=== PATIENT | female | born 1970 | race Caucasian/White ===

== ENCOUNTER 2018-02-02 08:24 | Day surgery (SDC) | payer BC ==
[2018-01-26 14:58] VITALS: BMI 25.1
--- NOTE | 2018-02-01 10:26 | HP ---
HISTORY AND PHYSICAL CHIEF COMPLAINT: Left knee pain. 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 She is having pain, giving way, and swelling. She has tried medications in addition to an injection without much relief. She notes the pain significantly limits her. PAST MEDICAL HISTORY: Negative. PAST SURGICAL HISTORY: Negative. CURRENT MEDICATIONS: 1. Aleve. 2. Aleisha. She denies drug allergies. FAMILY HISTORY: Significant for cancer. SOCIAL HISTORY: Significant for social alcohol use. REVIEW OF SYSTEMS: A 16 point review of systems otherwise reviewed and is noncontributory. PHYSICAL EXAMINATION: On examination, the patient is approximately 5 foot 10, 175 pounds of mesomorphic habitus. HEENT exam is nonfocal. Neck is supple. She has painless passive motion of her left hip. Straight leg raise is negative. Active motion left knee -10 to 120 degrees of flexion. She has a moderate effusion. She is tender about the medial joint line. Collaterals are stable, Benitez is negative, Amber's elicits medial pain. Her distal neurovascular exam appears intact in the left lower extremity. MRI report left knee 12/22/2017 shows a possible medial femoral condyle chondral injury. Degenerative changes involve the medial and patellofemoral compartments are noted. IMPRESSION: 1. Left knee internal derangement, possible medial femoral condyle chondral injury. 2. Left knee medial and patellofemoral femoral compartment osteoarthrosis. RECOMMENDATIONS: I talked to the patient at length regarding her condition and treatment options. At this point, she is quite symptomatic despite conservative measures. After thorough discussion, she opts to proceed with surgery. We will plan to proceed with arthroscopic evaluation with possible medial femoral conducting and possible microfracture. Risks and benefits were discussed at length in layman's terms. We will likely perform that as an outpatient procedure. MMODL / IJN: [id number] /
[~2018-02-02 08:24] MED LIST: DEXAMETHASONE SOD PHOSPHATE 10 MG/ML 1 ML VIAL IV ONE; LIDOCAINE 1% 20 ML VIAL (10MG/ML) FOR IV START INTRADERMA PRN; MIDAZOLAM 2 MG/2 ML VIAL IV PRN; ONDANSETRON 4 MG/2 ML VIAL IVP ONE; SCOPOLAMINE 1.5MG/72HR PATCH TRANSDERM ONE; ceFAZolin IN SWFI 2 GM/20 ML SYRINGE IVP ONE
[2018-02-02 08:38] VITALS: RESP 16
[2018-02-02] MEDS: LACTATED RINGERS 1,000 ML IV SCH ×2 (08:52→13:08)
[2018-02-02] MEDS ORDERED: PROPOFOL 10 MG/ML 20 ML VIAL IV ONE (10:03)
[2018-02-02] MEDS ORDERED: fentaNYL (PF) 50 MCG/ML 2 ML AMP ONE (10:03)
[2018-02-02] MEDS ORDERED: LIDOCAINE 1% INJ 10MG/ML (20 ML MDV) ONE (10:03)
[2018-02-02] MEDS ORDERED: KETOROLAC 30 MG/ML 1 ML VIAL ONE (10:03)
[2018-02-02] MEDS ORDERED: EPINEPHrine (PF) 1 ML in SODIUM CHLORIDE 0.9% IRRIGATIO 3,000 ML IRRIGATION ONE ×4 (10:05)
--- NOTE | 2018-02-02 10:49 | P.OP ---
Date of Procedure: 02/02/18 Preoperative Diagnosis: Left knee internal derangement Postoperative Diagnosis: Left knee posterior medial meniscal tear/grade 3 chondral injury posterior medial aspect medial femoral condyle/grade 3 chondral injury distal medial aspect lateral femoral condyle Procedure(s) Performed: Left knee arthroscopic partial medial meniscectomy/medial and lateral femoral chondrectomy/microfracture of the medial femoral condyle/microfracture the lateral femoral condyle Anesthesia: GETA Surgeon: Vasquez Sullivan Estimated Blood Loss (ml): 10 Pathology: none sent Condition: stable Disposition: PACU Indications for Procedure: The patient is a 47-year-old female who presents with progressive left knee pain and mechanical symptoms despite conservative measures. A discussion of the risks and benefits of operative intervention versus continued conservative measures was made with patient. She opted for procedure surgery. Operative risks to include infection, neurovascular injury, development of blood clots, possible incomplete resolution of symptoms, possible worsening symptoms and need for subsequent procedures was discussed. Informed consent was obtained. Operative Findings: As below Description of Procedure: The patient was brought to the operating room, and after induction of general anesthesia examined the left knee. Collaterals were stable, Benitez was negative, and posterior drawer was negative. The left lower extremity was prepped and draped in normal fashion. A superior lateral portal was made through a 3 mm skin incision superior and lateral to the patella. This was used for outflow. A lateral portal was made through a 5 mm vertical skin incision lateral to the patella tendon above the joint line. On inspection of the medial compartment, and oblique tear involving the posterior horn medial meniscus in the white-white junction was noted. This debrided back to stable base with straight baskets and a motorized shaver. The edges were contoured. A grade 3 chondral injury involving the posterior medial and distal medial aspect of the medial femoral condyle was noted. There was a loose chondral fragment. This was debrided back to a stable base with a motorized shaver. It was elected to proceed with microfracture this point. A chondral pick was used to breach the subchondral surface in 2 locations down to a bleeding surface. On inspection of the notch, anterior cruciate ligament appeared to be intact. On inspection of the lateral compartment, the lateral meniscus was stable and intact. A grade 3 chondral defect measuring 2 x 2 cm was noted on the distal medial portion the lateral femoral condyle. There was a loose chondral fragment debrided back to stable base with a motorized shaver. Microfracture is performed with a chondral pick and 2 locations reaching the subchondral surface down to bleeding surface. On inspection of the patellofemoral articulation, there is chondral fibrillation and mild degenerative changes however no loose chondral fragment. Several small loose chondral fragments were noted in the knee and debrided with motorized shaver. The gutters were clear debris. The knee was thoroughly irrigated. The portals were closed with Steri-Strips. A sterile dressing was applied in addition to a compression stocking. The patient was awoken from general anesthesia and transferred to recovery room in good condition. Blood loss was estimated at 10 mL. No complications were incurred.
[2018-02-02 10:56] VITALS: TEMP 97.8
[2018-02-02] MEDS: HYDROmorphone 0.5 MG/0.5 ML SYRINGE IVP PRN ×5 (11:00→11:26)
[2018-02-02] MEDS ORDERED: LACTATED RINGERS 1,000 ML IV ONE ×3 (11:16)
[2018-02-02] MEDS ORDERED: fentaNYL (PF) 50 MCG/ML 2 ML AMP IVP ONE (11:40)
[2018-02-02 12:31] VITALS: BP 143/78; PULSE 52
[2018-02-02] MEDS ORDERED: ONDANSETRON 4 MG/2 ML VIAL IVP ONE ×2 (12:55→13:00)
== END 2018-02-02 14:06 | disposition home or self-care (01) ==
LOC: OR 08:24
PROVIDERS: ATTEND Orthopaedic Surgery
DX: M23.322 Other meniscus derangements, posterior horn of medial meniscus, left knee (principal); M23.92 Unspecified internal derangement of left knee; M17.12 Unilateral primary osteoarthritis, left knee; Z79.1 Long term (current) use of non-steroidal anti-inflammatories (NSAID); Z79.899 Other long term (current) drug therapy
CPT/HCPCS: 29881; 29879; J1100; J2405; J0171; J2001; J3010; J1885; J2704; J1170; J0690

== ENCOUNTER → 2018-12-14 | Outpatient (CLI) | payer BC ==
[2018-12-14 09:49] LABS: Basophils # (A) 0.1 k/uL (0-0.2); Basophils % (A) 1 %; Eosinophils # (A) 0.3 k/uL (0-0.7); Eosinophils % (A) 6 %; HCT 41.5 % (34.0-46.0); HGB 13.6 gm/dL (11.4-16.0); Lymphocytes # (A) 1.1 k/uL (1.0-4.8); Lymphocytes % (A) 20 %; MCH 33.8 pg (25.0-35.0); MCHC 32.7 g/dL (31.0-37.0); MCV 103.2 fL (80.0-100.0); Macrocytosis Slight; Mean Platelet Volume 7.6; Monocytes # (A) 0.3 k/uL (0-1.0); Monocytes % (A) 5 %; Neutrophils # (A) 3.5 k/uL (1.3-7.7); Neutrophils % (A) 66 %; Platelet Count 262 k/uL (150-450); RBC 4.02 m/uL (3.80-5.40); RDW 12.6 % (11.5-15.5); WBC 5.3 k/uL (3.8-10.6)
[2018-12-14 09:52] LABS: Prothrombin Time 10.3 sec (9.0-12.0)
[2018-12-14 09:53] LABS: Potassium 4.4 mmol/L (3.5-5.1)
== END | disposition home or self-care (01) ==
LOC: LABPAT 08:58
PROVIDERS: ATTEND Orthopaedic Surgery
DX: Z01.812 Encounter for preprocedural laboratory examination (principal); Z01.818 Encounter for other preprocedural examination; M16.11 Unilateral primary osteoarthritis, right hip
CPT/HCPCS: 36415; 80051; 85025; 85610; 87070

== ENCOUNTER 2018-12-25 07:01 | Inpatient (IN) | payer BC ==
[2018-12-19 15:04] VITALS: BMI 25.8
--- NOTE | 2018-12-24 08:57 | HP ---
HISTORY AND PHYSICAL CHIEF COMPLAINT: Right hip pain. 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 It has worsened recently. She has pain with weightbearing activities. She notes intermittent catching. She has a difficult time getting around. She has tried medications in addition to Medrol Dosepak without much relief. PAST MEDICAL HISTORY: Significant for arthritis. PAST SURGICAL HISTORY: Negative. CURRENT MEDICATIONS: Aleisha. ALLERGIES: She denies drug allergies. FAMILY HISTORY: Significant for cancer. SOCIAL HISTORY: Negative for current tobacco or alcohol use. REVIEW OF SYSTEMS: Sixteen-point review of systems otherwise reviewed and is noncontributory. PHYSICAL EXAMINATION: On examination, the patient is approximately 5 feet 10 inches, 180 pounds of mesomorphic habitus. HEENT exam is nonfocal. Neck is supple. Passive motion right hip, flexion 90 degrees, external rotation with hip flexed 50 degrees, internal rotation 0 degrees with pain. Clinically, she has approximately 1 cm shortening right lower extremity compared to the left. Her distal neurovascular exam appears intact in the right lower extremity. Previous x-rays of the right hip obtained in the office show severe osteoarthrosis with [id number] changes. IMPRESSION: Right hip severe osteoarthrosis-symptomatic. RECOMMENDATIONS: I talked to the patient at length regarding her condition along with treatment options. At this point, she is quite limited because of pain related to her osteoarthrosis despite conservative measures. After thorough discussion, she opts to proceed with surgery. We will plan to proceed with right total hip arthroplasty utilizing a direct anterior approach. We will institute DVT prophylaxis postoperatively. MMODL / IJN: [id number] /
[~2018-12-25 07:01] MED LIST changes: +ACETAMINOPHEN TAB 500 MG TAB PO ONE; -LIDOCAINE 1% 20 ML VIAL (10MG/ML) FOR IV START INTRADERMA PRN; +MELOXICAM 7.5 MG TAB PO ONE; -MIDAZOLAM 2 MG/2 ML VIAL IV PRN; +TRANEXAMIC ACID 1,000 MG in SODIUM CHLORIDE 0.9% 100 ML IVPB ONE; -ceFAZolin IN SWFI 2 GM/20 ML SYRINGE IVP ONE
[2018-12-25] MEDS: LACTATED RINGERS 1,000 ML IV SCH (07:39)
[2018-12-25] MEDS ORDERED: LIDOCAINE 1% 20 ML VIAL (10MG/ML) FOR IV START INTRADERMA ONE (07:45)
[2018-12-25] MEDS ORDERED: MIDAZOLAM 2 MG/2 ML VIAL ONE (08:00)
[2018-12-25] MEDS ORDERED: LIDOCAINE 1% INJ 10MG/ML (20 ML MDV) ONE (08:00)
[2018-12-25] MEDS ORDERED: TRANEXAMIC ACID 1,000 MG/10 ML VIAL ONE (08:00)
[2018-12-25] MEDS ORDERED: GLYCOPYRROLATE 0.2 MG/ML 2 ML VIAL ONE (08:00)
[2018-12-25] MEDS ORDERED: PROPOFOL 10 MG/ML 20 ML VIAL IV ONE (08:00)
[2018-12-25] MEDS ORDERED: ePHEDrine SULFATE/0.9% NACL/PF 50 MG/5 ML SYRINGE IV ONE (08:00)
[2018-12-25] MEDS ORDERED: fentaNYL (PF) 50 MCG/ML 2 ML AMP ONE (08:00)
[2018-12-25] MEDS ORDERED: ROCURONIUM BROMIDE 10 MG/ML 10 ML VIAL IV ONE (08:00)
[2018-12-25] MEDS ORDERED: SUCCINYLCHOLINE CHLORIDE 100 MG/5 ML SYR IV ONE (08:00)
[2018-12-25] MEDS ORDERED: SODIUM CHLORIDE 0.9% 100 ML BAG ONE (08:00)
[2018-12-25] MEDS ORDERED: NEOSTIGMINE 1 MG/ML 10 ML VIAL ONE (08:00)
[2018-12-25] MEDS ORDERED: HYDROmorphone (PF) 1 MG/ML ONE (08:00)
[2018-12-25] MEDS ORDERED: ceFAZolin 3,000 MG in SODIUM CHLORIDE 0.9% IRRIGATIO 3,000 ML IRRIGATION ONE (08:46)
[2018-12-25] MEDS ORDERED: LACTATED RINGERS 1,000 ML IV ONE (09:33)
[2018-12-25] MEDS ORDERED: ONDANSETRON 4 MG/2 ML VIAL IVP PRN (10:28)
[2018-12-25] MEDS ORDERED: HYDROmorphone 0.5 MG/0.5 ML SYRINGE IVP PRN (10:28)
[2018-12-25] MEDS ORDERED: ACETAMINOPHEN TAB 325 MG TAB PO PRN (10:28)
[2018-12-25] MEDS ORDERED: HYDROcodone/APAP 7.5-325MG 1 EACH TAB PO PRN (10:28)
[2018-12-25] MEDS ORDERED: MAGNESIUM HYDROXIDE 2,400 MG/10 ML CUP PO PRN (10:28)
[2018-12-25] MEDS ORDERED: HYDROmorphone 1 MG/ML 1 ML SYRINGE IVP PRN (10:28)
[2018-12-25] MEDS ORDERED: NALOXONE 0.4 MG/ML 1 ML VIAL IV PRN ×2 (10:28→12:58)
--- NOTE | 2018-12-25 10:55 | P.OP ---
Date of Procedure: 12/25/18 Preoperative Diagnosis: Right hip severe osteoarthrosis Postoperative Diagnosis: Same Procedure(s) Performed: Right total hip arthroplastyanterior approach Implants: Depuy Corail size 11 standard collared press-fit femoral stem, 36 mm +1.5 ceramic femoral head, 56 mm [place] acetabular shell with neutral polyethylene liner. Anesthesia: pb NEGRO Surgeon: Vasquez Sullivan Gsa Coordinator #1: Felice Albert Estimated Blood Loss (ml): 850 Pathology: other (Femoral head) Condition: stable Disposition: PACU Indications for Procedure: The patient's a 48-year-old female who presents with progressive right hip pain secondary to osteoarthrosis despite conservative measures. A discussion of the risks and benefits of operative intervention versus continued conservative measures was made with the patient. She opted to proceed with surgery. Operative risks to include infection, neurovascular injury, fracture, leg length discrepancy, instability, and possible need for subsequent procedures was discussed. Informed consent was obtained. Operative Findings: As below Description of Procedure: The patient was brought to the operating room, and after induction of spinal anesthesia was placed supine on the Rut table. Positioning was checked with fluoroscopy. The right hip was then prepped and draped in a normal fashion. A 12 cm incision was then made starting 2 fingerbreadths distal and 3 finger breaths posterior to the ASIS in line with the proximal femur. The skin was incised sharply. Subcutaneous tissues were divided sharply. Electrocautery was used for hemostasis. The fascia was split in line with skin incision. The interval between the sartorius and tensor fascia jose was then bluntly developed. The posterior fascia was opened with electrocautery. The lateral circumflex vessels were identified and cauterized prior to sectioning. A retractor was placed along the superior femoral neck as well as the anterior acetabular rim. A wide capsulotomy was performed. The neck cut was then made at a 45 angle to the shaft approximately 1 1/2 cm above the level of the lesser trochanter. The head was extracted. Attention was then paid towards preparing the acetabular. Anterior and posterior retractors were placed. The remaining capsular labral tissue sharply debrided clearly defining the acetabular margins. I began reaming with a 49 mm reamer taking care to initially medialize then reaming at 45 of abduction and 20 of anteversion. Sequential reaming is performed up to 55 mm. A trial 56 mm acetabular shell was inserted in the same orientation and was fully seated. There was good rim fit and stability. Positioning was checked with fluoroscopy. The final 56 mm acetabular shell was inserted again at 45 of abduction and 20 of anteversion. This was fully seated. There was good rim fit and stability. A 25 mm x 6.5 mm cancellus screw was inserted posteriorly with good purchase. Again fluoroscopy was used to check the adequacy of placement. A neutral polyethylene liner was gently impacted. Care was taken to avoid any soft tissue interposition. Pulsatile lavage was utilized. Attention was then paid towards preparing the proximal femur. The central region was cleared of soft tissue. A canal finder was used to find the femoral canal. Sequential broaching was performed up to size 11 taking care to lateralize proximally. A calcar mill was used to fashion the medial calcar. There was good rotational stability. A standard neck along with a 36+1.5 mm head was placed. The hip was gently reduced. Fluoroscopy was used to check the adequacy of positioning along with leg lengths. I felt both were good. The hip was gently dislocated. The trial components were removed. The final size 11 collared standard press-fit femoral stem was inserted parallel to the posterior cortex. This was fully seated and there was good rotational stability. A 36 mm +1.5 ceramic head was placed. This was gently impacted. The hip was then gently reduced. Final fluoroscopic view showed adequate placement implant along with faith of leg length. Stability was checked with 80 of external rotation and 60 of extension of the right hip. The wound was irrigated with sterile lavage. The fascia was closed with running 0 Vicryl suture. There was minimal drainage therefore a deep drain was not placed. The second dose of IV TXA was given. The subcutaneous tissues were reapproximated interrupted 2-0 Vicryl sutures. The skin was reapproximated with 3-0 subcuticular strata fix suture. Skin tape and adhesive was applied. A sterile dressing was applied. The patient was then awoken from sedation and transferred to recovery room in good condition. Blood loss was estimated at 850 mL. Approximately 350 mL of Cell Saver was given back. No complications were incurred. Sponge and needle counts were correct at the end of the case. Aram FLYNN assisted during the major components is case to include exposure, bone resection, implantation, and closure.
--- NOTE | 2018-12-25 10:56 | XR ---
EXAMINATION TYPE: XR Hip Limited RT, FL guidance operating room DATE OF EXAM: 12/25/2018 CLINICAL HISTORY: Fluoroscopic documentation during right hip arthroplasty TECHNIQUE: Fluoroscopy. COMPARISON: None. FINDINGS: Fluoroscopic guidance was provided during procedure performed by Dr. Sullivan. A total of 1. 12 minutes of fluoroscopic time was utilized during the procedure and 1 spot images was acquired. IMPRESSION: As Above.
[2018-12-25] MEDS: HYDROmorphone 0.5 MG/0.5 ML SYRINGE IVP PRN ×8 (11:11→12:46)
--- NOTE | 2018-12-25 11:24 | XR ---
EXAMINATION TYPE: XR Hip Limited RT DATE OF EXAM: 12/25/2018 CLINICAL HISTORY: Right hip pain and osteoarthritis. TECHNIQUE: Single AP portable view of right hip is obtained immediately postoperatively. COMPARISON: None. FINDINGS: Metallic hardware from right hip arthroplasty is seen and appears satisfactory in alignment and position. There is evidence of recent surgery with subcutaneous gas noted laterally. IMPRESSION: Metallic hardware from right hip arthroplasty is satisfactory in position.
[2018-12-25] MEDS: MIDAZOLAM 2 MG/2 ML VIAL IV PRN ×2 (11:48→12:03)
[2018-12-25] MEDS: HYDROmorphone PCA 10 MG/50 ML BAG IV PRN (14:38)
--- NOTE | 2018-12-25 16:07 | P.CONS ---
History of Present Illness - Reason for Consult Consult date: 12/25/18 Seasonal allergies Requesting physician: Vasquez Sullivan - Chief Complaint Right hip pain - History of Present Illness Patient is a 48 yo CF with a hx of seasonal allergies, migraine headache and arthritis who presented for elective Right anterior CURLY. 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 Patient seen and examined at bedside with family present. She states that her pain is currently well controlled however she did have severe postoperative pain. Her spinal was unsuccessful and she therefore had general anesthesia. S he denies any postoperative headache, nausea, vomiting, chest pain, or shortness of breath. She is having difficulty staying awake secondary to the pain medications. Her are concerned about ambulating seen neurosurgery. I discussed with him that she should not get out of bed until she is more awake and Physical therapy evaluate tomorrow. They are also wondering about doing physical therapy in [place] as that is where they live. She denies any recent cough, cold, fever, flu, nausea, or vomiting. She has had arthritis for 10 years and despite treatment with pain medications and steroids she has not had improvement in her hip pain. She was struggling to perform her ADLs but was not requiring assistive devices. is concerned about the color of her lips which do appear slightly weight but not cyanotic. He was also concerned about needing to check her blood count immediately due to blood loss. I'm certain that there is some blood loss associated with all hip surgeries and that if she becomes tachycardic, hypotensive or is it noted to have bleeding from the operative site we will check a blood count immediately otherwise we will recheck a blood count in the [facility]. Review of Systems Pertinent positives and negatives as discussed in HPI, a complete review of systems was performed and all other systems are negative. Past Medical History Additional Past Medical History / Comment(s): SEASONAL ALLERGIES, migraines, History of Any Multi-Drug Resistant Organisms: None Reported Past Surgical History: Hysterectomy, Orthopedic Surgery Additional Past Surgical History / Comment(s): left knee arthroscopy Past Anesthesia/Blood Transfusion Reactions: No Reported Reaction Past Psychological History: No Psychological Hx Reported Smoking Status: Never smoker Past Alcohol Use History: Occasional Past Drug Use History: None Reported Additional History: Still working, no assistive devices - Past Family History Mother Family Medical History: Cancer Additional Family Medical History / Comment(s): BREAST Father Family Medical History: Cancer Additional Family Medical History / Comment(s): THROAT Medications and Allergies Home Medications Medication Instructions Recorded Confirmed Type Fexofenadine HCl [Aleisha Allergy] 180 mg PO DAILY 01/26/18 12/25/18 History Fish Oil(Dose Unknown) 1 tab PO DAILY 12/19/18 12/19/18 History Iron(Dose Unknown) 1 tab PO DAILY 12/19/18 12/19/18 History Multivitamins, Thera [Multivitamin 1 tab PO DAILY 12/19/18 12/19/18 History (formulary)] Sertraline [Zoloft] 50 mg PO DAILY 12/19/18 12/25/18 History Vitamin D(Dose Unknown) 1 tab PO DAILY 12/19/18 12/19/18 History Allergies Allergy/AdvReac Type Severity Reaction Status Date / Time No Known Allergies Allergy Verified 12/19/18 14:56 Physical Exam Osteopathic Statement: *. No significant issues noted on an osteopathic structural exam other than those noted in the History and Physical/Consult. Vitals: Vital Signs Temp Pulse Pulse Resp BP Pulse Ox 12/25/18 15:00 97.7 F 69 16 117/68 96 12/25/18 14:13 97 12/25/18 13:39 97.6 F 60 15 106/64 96 12/25/18 13:01 66 18 109/59 95 12/25/18 12:31 65 18 115/55 98 12/25/18 12:01 54 L 16 109/59 98 12/25/18 11:30 59 L 14 118/59 100 12/25/18 11:16 52 L 18 111/58 100 12/25/18 11:01 56 L 18 122/59 100 12/25/18 10:48 98.1 F 55 L 12 129/63 100 12/25/18 07:23 98.3 F 58 L 16 138/76 92 L Intake and Output 12/25/18 12/25/18 12/25/18 06:59 14:59 22:59 Intake Total 1351 Output Total 850 Balance 501 Intake: IV 1351 Output: Estimated Blood Loss 850 Other: Weight 86.183 kg General: non toxic, no distress, appears at stated age, normal weight Derm: pallor of skin, no unusual rashes/lesions no unusual ecchymoses, warm, dry Head: atraumatic, normocephalic, symmetric Eyes: EOMI, no lid lag, anicteric sclera ENT: Nose and ears atraumatic, no thrush, no pharyngeal erythema Neck: No thyromegaly, no cervical lymphadenopathy, trachea midline, supple Mouth: no lip lesion, mucus membranes moist Cardiovascular: S1S2 reg, no murmur, positive posterior tibial pulse bilateral, no edema, capillary refill less than 2 seconds Lungs: CTA bilateral, no rhonchi, no rales , no accessory muscle use Abdominal: soft, nontender to palpation, no guarding, no appreciable organomegaly, normal bowel sounds Ext: no gross muscle atrophy, muscle strength 5 out of 5 in upper extremities grossly, no contractures, Neuro: CN II-XI grossly intact, light touch intact all 4 extremities, finger to nose within normal limits, Psych: Alert, oriented, appropriate affect Assessment and Plan Assessment: Patient is a 48-year-old female here for an elective right total hip arthroplasty. On Xarelto for DVT prophylaxis. PT and OT consulted. Postop pain management per orthopedic surgery. Metabolic encephalopathy -Secondary to need for IV pain medications after surgery -Attempt to limit IV pain medications and encourage the patient to take oral pain medications Seasonal ALLERGIES -Resume pellagra HX of Migraine headaches -If she starts having a headache secondary to the dilaudid will try Tylenol. Thank you for allowing us to participate in the care of this pleasant patient. Do not hesitate to contact us with questions. Someone can be reached from the [facility] hospitalist group all hours of the day at [phone] or via perfect serve.
[2018-12-25] MEDS: SENNOSIDES-DOCUSATE SODIUM 1 EACH TAB PO SCH (21:20)
[2018-12-25] MEDS: hydrOXYzine PAMOATE 25 MG CAP PO PRN (21:21)
[2018-12-25] MEDS ORDERED: BENZOCAINE/MENTHOL LOZENG 1 EACH LOZENGE MUCOUS MEM PRN (21:35)
[2018-12-25] MEDS: HYDROcodone/APAP 10-325MG 1 EACH TAB PO PRN (22:07)
[2018-12-26] MEDS: HYDROcodone/APAP 10-325MG 1 EACH TAB PO PRN ×3 (01:21→10:14)
[2018-12-26] MEDS: hydrOXYzine PAMOATE 25 MG CAP PO PRN ×2 (04:44→19:18)
[2018-12-26] MEDS: LACTATED RINGERS 1,000 ML IV SCH (06:26)
[2018-12-26 08:27] LABS: African American GFR (CKD) >90 (>60 ml/min/1.73 sqM); Anion Gap 4 mmol/L; Basophils % (A) 1 %; Blood Urea Nitrogen 10 mg/dL (7-17); Calcium 8.2 mg/dL (8.4-10.2); Carbon Dioxide 30 mmol/L (22-30); Chloride 98 mmol/L (98-107); Eosinophils # (A) 0.1 k/uL (0-0.7); Eosinophils % (A) 2 %; Glucose 100 mg/dL (74-99); HCT 29.4 % (34.0-46.0); Lymphocytes # (A) 1.4 k/uL (1.0-4.8); Lymphocytes % (A) 24 %; MCHC 32.9 g/dL (31.0-37.0); MCV 103.2 fL (80.0-100.0); Macrocytosis Slight; Mean Platelet Volume 8.2; Monocytes # (A) 0.5 k/uL (0-1.0); Monocytes % (A) 8 %; Neutrophils # (A) 3.8 k/uL (1.3-7.7); Neutrophils % (A) 64 %; Non-African American GFR(CKD) >90 (>60 ml/min/1.73 sqM); Platelet Count 216 k/uL (150-450); Potassium 3.5 mmol/L (3.5-5.1); RBC 2.85 m/uL (3.80-5.40); RDW 12.3 % (11.5-15.5); Sodium 132 mmol/L (137-145); WBC 5.9 k/uL (3.8-10.6)
[2018-12-26] MEDS: RIVAROXABAN 10 MG TAB PO SCH (08:28)
[2018-12-26] MEDS: HYDROmorphone PCA 10 MG/50 ML BAG IV PRN (08:29)
[2018-12-26] MEDS: FAMOTIDINE 20 MG TAB PO SCH (08:29)
[2018-12-26] MEDS: MULTIVITAMINS, THERA 1 EACH TAB PO SCH (08:30)
[2018-12-26] MEDS: LORATADINE 10 MG TAB PO SCH (08:30)
[2018-12-26 08:31] LABS: HGB 9.7 gm/dL (11.4-16.0)
[2018-12-26] MEDS ORDERED: DIAZEPAM 5 MG TAB PO STA (10:18)
--- NOTE | 2018-12-26 10:24 | P.PN ---
Subjective Progress Note Date: 12/26/18 Principal diagnosis: hip pain Patient is a 48 yo CF with a hx of seasonal allergies, migraine headache and arthritis who presented for elective Right anterior CURLY. 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 Patient seen and examined at bedside. Complains of cramping in her leg and pain. Describes it as a burning. Pain worsened when moving from bed to chair. Denies chest pain, SOB, has a slight headache. Concerned about level of pain, was not expecting this much pain or difficulties after surgery. We discussed trial of valium to see if there is a component of muscle spasm. Also discussed that the younger we are the more intense we typically feel pain, that everyone reacts to pain and surgery differently. Offered to call ortho team to see if they can see patient earlier. Also concerned about lack of coordination of care as case management came to discuss discharge plans when patient has still not ambulated and physical therapy had not evaluated. Attempted to explain that we start to plan for what will be needed for discharge from admission. Objective - Vital Signs Vital signs: Vital Signs Temp 97.6 F 12/26/18 07:00 Pulse 69 12/26/18 07:00 Resp 18 12/26/18 07:00 BP 110/62 12/26/18 07:00 Pulse Ox 96 12/26/18 07:00 Intake & Output 12/25/18 12/26/18 12/26/18 18:59 06:59 18:59 Intake Total 1351 200 Output Total 850 Balance 501 200 Weight 86.183 kg Intake: IV 1351 Oral 200 Output: Estimated Blood Loss 850 Other: Voiding Method Bedpan # Voids 1 - Exam General: ill appearing, mild distress due to pain, appears at stated age Derm: warm, dry Head: atraumatic, normocephalic, symmetric Eyes: EOMI, no lid lag, anicteric sclera Mouth: no lip lesion, mucus membranes moist Cardiovascular: S1S2 reg, no murmur, positive posterior tibial pulse bilateral, Lungs: CTA bilateral, no rhonchi, no rales , no accessory muscle use Abdominal: soft, nontender to palpation, no guarding, no appreciable organomegaly Ext: no gross muscle atrophy, 1+ edema, no contractures Psych: Alert, oriented, upset and tearful - Labs CBC & Chem 7: 12/26/18 07:14 12/26/18 07:14 Labs: Abnormal Lab Results - Last 24 Hours (Table) 12/26/18 12/26/18 Range/Units 07:14 07:14 RBC 2.85 L (3.80-5.40) m/uL Hgb 9.7 L D (11.4-16.0) gm/dL Hct 29.4 L (34.0-46.0) % MCV 103.2 H (80.0-100.0) fL Sodium 132 L (137-145) mmol/L Creatinine 0.45 L (0.52-1.04) mg/dL Glucose 100 H (74-99) mg/dL Calcium 8.2 L (8.4-10.2) mg/dL Assessment and Plan Assessment: Patient is a 48-year-old female here for an elective right total hip arthroplasty. On Xarelto for DVT prophylaxis. PT and OT consulted. Postop pain management per orthopedic surgery. Post-op pain - valium X 1 - called ortho and left message (received call back) - encourage mobilization Acute blood loss anemia -expected outcome of surgery - Ferrous sulfate twice daily X 30 days - bowel regiment - repeat CBC in AM Seasonal ALLERGIES -Claritin HX of Migraine headaches - headache secondary to the dilaudid will try Tylenol. Metabolic encephalopathy, resolved - Called [facility] patient advocate to notify, also discussed patient with nursing, case management, and Aram
--- NOTE | 2018-12-26 12:15 | P.PN ---
Subjective Progress Note Date: 12/26/18 Principal diagnosis: Status post right total hip arthroplasty Patient evaluated today at bedside, she has multiple family members present. Patient did have a lot of pain in the postop period yesterday, he WELDING ROD COATER was placed. She notes slight improvement since yesterday. Therapy was unable to do much with patient today. Patient currently denies any chest pain or shortness of breath. Objective - Vital Signs Vital signs: Vital Signs Temp 97.6 F 12/26/18 07:00 Pulse 69 12/26/18 08:00 Resp 18 12/26/18 08:00 BP 110/62 12/26/18 07:00 Pulse Ox 96 12/26/18 07:00 Intake & Output 12/25/18 12/26/18 12/26/18 18:59 06:59 18:59 Intake Total 1351 200 Output Total 850 Balance 501 200 Weight 86.183 kg Intake: IV 1351 Oral 200 Output: Estimated Blood Loss 850 Other: Voiding Method Bedpan Bedpan # Voids 1 - Exam Right lower extremity: Incision is clean, dry, and intact. The exofin fusion tape is in good condition. There is minimal soft tissue swelling and ecchymosis surrounding the medial and lateral aspects of the incision. Calf is soft, no tenderness with palpation. Plantar flexion, dorsiflexion, EHL, FHL are intact. Sensory exam to light touch throughout the extremity is intact, dorsal pedis pulses 2+. - Labs CBC & Chem 7: 12/26/18 07:14 12/26/18 07:14 Labs: Abnormal Lab Results - Last 24 Hours (Table) 12/26/18 12/26/18 Range/Units 07:14 07:14 RBC 2.85 L (3.80-5.40) m/uL Hgb 9.7 L D (11.4-16.0) gm/dL Hct 29.4 L (34.0-46.0) % MCV 103.2 H (80.0-100.0) fL Sodium 132 L (137-145) mmol/L Creatinine 0.45 L (0.52-1.04) mg/dL Glucose 100 H (74-99) mg/dL Calcium 8.2 L (8.4-10.2) mg/dL Assessment and Plan Plan: Assessment: Postoperative day 1 status post direct anterior right total hip arthroplasty Acute blood loss anemia, expected surgical outcome Plan: Pain control, had discussion with patient and family regarding WELDING ROD COATER and use of IV pain medication. Advise for discharge, patient needs to be transitioned oral medication. We will work on avoiding IV pain medication today GI and DVT prophylaxis, continue current medication Wound care instructions discussed Continue work with physical therapy We'll begin oral iron medications time Medical recommendations Continue to follow patient during inpatient stay Time with Patient: Less than 30
[2018-12-26] MEDS: HYDROcodone/APAP 7.5-325MG 1 EACH TAB PO PRN ×2 (15:18→20:42)
[2018-12-26] MEDS: FERROUS SULFATE 325 MG TAB PO SCH ×2 (15:19→17:59)
[2018-12-26] MEDS: SENNOSIDES-DOCUSATE SODIUM 1 EACH TAB PO SCH (20:42)
[2018-12-27] MEDS: HYDROcodone/APAP 7.5-325MG 1 EACH TAB PO PRN ×4 (01:23→21:57)
[2018-12-27] MEDS: hydrOXYzine PAMOATE 25 MG CAP PO PRN ×4 (03:06→21:57)
[2018-12-27] MEDS: traMADol 50 MG TAB PO PRN ×2 (05:22→11:31)
[2018-12-27] MEDS: LACTATED RINGERS 1,000 ML IV SCH (06:59)
[2018-12-27] MEDS: HYDROcodone/APAP 10-325MG 1 EACH TAB PO PRN (07:31)
[2018-12-27] MEDS: RIVAROXABAN 10 MG TAB PO SCH (07:32)
[2018-12-27] MEDS: LORATADINE 10 MG TAB PO SCH (07:32)
[2018-12-27] MEDS: FAMOTIDINE 20 MG TAB PO SCH (07:32)
[2018-12-27] MEDS: MULTIVITAMINS, THERA 1 EACH TAB PO SCH (07:32)
[2018-12-27] MEDS: FERROUS SULFATE 325 MG TAB PO SCH ×2 (07:32→17:47)
[2018-12-27 07:51] LABS: Basophils % (A) 1 %; Eosinophils # (A) 0.2 k/uL (0-0.7); Eosinophils % (A) 3 %; HCT 27.7 % (34.0-46.0); HGB 9.4 gm/dL (11.4-16.0); Lymphocytes # (A) 0.6 k/uL (1.0-4.8); Lymphocytes % (A) 11 %; MCH 34.4 pg (25.0-35.0); MCHC 34.1 g/dL (31.0-37.0); MCV 100.8 fL (80.0-100.0); Mean Platelet Volume 7.9; Monocytes # (A) 0.4 k/uL (0-1.0); Monocytes % (A) 7 %; Neutrophils # (A) 4.1 k/uL (1.3-7.7); Neutrophils % (A) 77 %; Platelet Count 211 k/uL (150-450); RBC 2.75 m/uL (3.80-5.40); RDW 12.1 % (11.5-15.5); WBC 5.3 k/uL (3.8-10.6)
[2018-12-27] MEDS ORDERED: POLYETHYLENE GLYCOL 3350 17 GM POWD.PACK PO STA (10:06)
--- NOTE | 2018-12-27 12:48 | P.PN ---
Subjective Progress Note Date: 12/27/18 Principal diagnosis: Status post right total hip arthroplasty Patient evaluated today at bedside, she has multiple family members present. Pain is much better today. Patient currently denies any chest pain or shortness of breath. Objective - Vital Signs Vital signs: Vital Signs Temp 99.2 F 12/27/18 07:23 Pulse 80 12/27/18 07:00 Resp 16 12/27/18 07:00 BP 111/71 12/27/18 07:00 Pulse Ox 91 L 12/27/18 07:00 Intake & Output 12/26/18 12/27/18 12/27/18 18:59 06:59 18:59 Intake Total 900 200 Output Total 500 Balance 900 -500 200 Intake: Intake, IV Titration 700 Amount Lactated Ringers 1,000 ml 700 @ 100 mls/hr IV .Q10H RAMIREZ Rx#:[id number] Oral 200 200 Output: Urine 500 Other: Voiding Method Bedpan Bedside Commode Bedpan # Voids 1 1 - Exam Right lower extremity: Incision is clean, dry, and intact. The exofin fusion tape is in good condition. There is minimal soft tissue swelling and ecchymosis surrounding the medial and lateral aspects of the incision. Calf is soft, no tenderness with palpation. Plantar flexion, dorsiflexion, EHL, FHL are intact. Sensory exam to light touch throughout the extremity is intact, dorsal pedis pulses 2+. - Labs CBC & Chem 7: 12/27/18 07:00 12/26/18 07:14 Labs: Abnormal Lab Results - Last 24 Hours (Table) 12/27/18 Range/Units 07:00 RBC 2.75 L (3.80-5.40) m/uL Hgb 9.4 L (11.4-16.0) gm/dL Hct 27.7 L (34.0-46.0) % MCV 100.8 H (80.0-100.0) fL Lymphocytes # 0.6 L (1.0-4.8) k/uL Assessment and Plan Plan: Assessment: Postoperative day #2 status post direct anterior right total hip arthroplasty Acute blood loss anemia, expected surgical outcome Plan: Pain control, BACK GRINDER has been discontinued, continue oral medication GI and DVT prophylaxis, continue current medication Wound care instructions discussed Continue work with physical therapy We'll begin oral iron medications time Medical recommendations Plan for dc home tomorrow Time with Patient: Less than 30
--- NOTE | 2018-12-27 14:02 | CDI ---
Documentation Clarification Form Date: 12/27/2018 1:30:57 PM From: Kimberly Peres RN, CCDS Admit Date: 12/27/2018 8:54:00 AM Patient Name: Tina Jaramillo Visit Number: [id number] Discharge Date: ATTENTION: The Clinical Documentation Specialists (CDI) and [facility] Coding Staff appreciate your assistance in clarifying documentation. Please respond to the clarification below the line at the bottom and electronically sign. The CDI & [facility] Coding staff will review the response and follow-up if needed. Please note: Queries are made part of the Legal Health Record. If you have any questions, please contact the author of this message via ITS. Dr. Vasquez Sullivan The patients principal diagnosis/reason for admission after a procedure has not been clearly identified and requires clarification. 48-year-old female presented 48 hours after same day surgery for an elective right total hip arthroplasty. 12/27/18 change to inpatient. History/Risk factors: Right hip severe osteroarhrosis Clinical Indicators: 48-year-old female who had an elective right total hip arthroplasty. She was complaining of pain and pain control after surgery and required Dilaudid CHICKEN PICKER. She complains of cramping in her leg and pain, describes as a burning. Pain worsened when moving from bed to chair. 12/26/18 Internal medicine progress note: Concerned about level of pain, was not expecting his much pain or difficulties after surgery Lab findings: HGB 9.7, HCT 29.4 Hip x-ray right: metallic hardware from right hip arthroplasty is satisfactory in position Vital Signs: 111/71 80 16 100.8 Other Clinical Indicators: 12/26/18 Ortho: Patient did have a lot of pain in the postop period, CHICKEN PICKER was placed. Treatment: PT and OT consulted Postop pain management per orthopedic surgery Dilaudid CHICKEN PICKER [place] 7.5/325 po Q 6 PRN In your professional opinion, can you please clarify which diagnosis, after study, accounted for the patients presenting symptoms and was the reason chiefly responsible for the admission following the procedure? (Last Revision: May 2017) The patient received a spinal anesthetic that was not effective, therefore her postop pain level was very high requiring significant narcotic medications, slowing her recovery and necessitating inpatient admission. DELIA
--- NOTE | 2018-12-27 16:22 | P.PN ---
Subjective Progress Note Date: 12/27/18 Patient doing well today reports that her pain is better controlled does report some constipation without having any bowel movements recently, requesting that her SUPERVISOR MAPPING be turned off. No acute events overnight Objective - Vital Signs Vital signs: Vital Signs Temp 99.2 F 12/27/18 07:23 Pulse 80 12/27/18 07:00 Resp 16 12/27/18 07:00 BP 111/71 12/27/18 07:00 Pulse Ox 91 L 12/27/18 07:00 Intake & Output 12/26/18 12/27/18 12/27/18 18:59 06:59 18:59 Intake Total 900 200 Output Total 500 Balance 900 -500 200 Intake: Intake, IV Titration 700 Amount Lactated Ringers 1,000 ml 700 @ 100 mls/hr IV .Q10H RAMIREZ Rx#:[id number] Oral 200 200 Output: Urine 500 Other: Voiding Method Bedpan Bedside Commode Bedpan # Voids 1 1 - Exam General: Well-appearing, reporting her pain is better controlled appears at stated age Derm: warm, dry Head: atraumatic, normocephalic, symmetric Eyes: EOMI, no lid lag, anicteric sclera Mouth: no lip lesion, mucus membranes moist Cardiovascular: S1S2 reg, no murmur, positive posterior tibial pulse bilateral, Lungs: CTA bilateral, no rhonchi, no rales , no accessory muscle use Abdominal: soft, nontender to palpation, no guarding, no appreciable organomegaly Ext: no gross muscle atrophy, 1+ edema, no contractures, minimal soft tissue swelling around the incision which is clean dry and intact Psych: Alert, oriented, in good spirits today - Labs CBC & Chem 7: 12/27/18 07:00 12/26/18 07:14 Labs: Abnormal Lab Results - Last 24 Hours (Table) 12/27/18 Range/Units 07:00 RBC 2.75 L (3.80-5.40) m/uL Hgb 9.4 L (11.4-16.0) gm/dL Hct 27.7 L (34.0-46.0) % MCV 100.8 H (80.0-100.0) fL Lymphocytes # 0.6 L (1.0-4.8) k/uL Assessment and Plan Assessment: Patient is a 48-year-old female here for an elective right total hip arthroplasty. On Xarelto for DVT prophylaxis. PT and OT consulted. Postop pain management per orthopedic surgery. Post-op pain -Deferred to primary regarding analgesic therapy -Patient with better pain control requesting that her SUPERVISOR MAPPING be turned off - encourage mobilization Acute blood loss anemia -expected outcome of surgery - Ferrous sulfate twice daily X 30 days - bowel regiment - repeat CBC in AM constipation * continue bowel cocktail w/ senna, MOM, start MiraLAx Seasonal ALLERGIES -Claritin HX of Migraine headaches - headache secondary to the dilaudid will try Tylenol. Metabolic encephalopathy, resolved - Called [facility] patient advocate to notify, also discussed patient with nursing, case management, and Aram
[2018-12-27] MEDS: SENNOSIDES-DOCUSATE SODIUM 1 EACH TAB PO SCH (21:57)
[2018-12-28] MEDS: HYDROcodone/APAP 7.5-325MG 1 EACH TAB PO PRN ×3 (03:00→14:11)
[2018-12-28] MEDS: hydrOXYzine PAMOATE 25 MG CAP PO PRN ×3 (03:07→14:11)
[2018-12-28] MEDS: LACTATED RINGERS 1,000 ML IV SCH (04:31)
[2018-12-28 07:19] VITALS: BP 112/68; PULSE 61; RESP 16; TEMP 98.8
[2018-12-28 07:20] LABS: Basophils % (A) 0 %; Eosinophils # (A) 0.3 k/uL (0-0.7); Eosinophils % (A) 7 %; HCT 27.8 % (34.0-46.0); HGB 9.5 gm/dL (11.4-16.0); Lymphocytes # (A) 1.1 k/uL (1.0-4.8); Lymphocytes % (A) 24 %; MCH 34.9 pg (25.0-35.0); MCHC 34.2 g/dL (31.0-37.0); MCV 102.1 fL (80.0-100.0); Mean Platelet Volume 7.8; Monocytes # (A) 0.3 k/uL (0-1.0); Monocytes % (A) 7 %; Neutrophils # (A) 2.7 k/uL (1.3-7.7); Neutrophils % (A) 59 %; Platelet Count 233 k/uL (150-450); RBC 2.73 m/uL (3.80-5.40); RDW 12.3 % (11.5-15.5); WBC 4.6 k/uL (3.8-10.6)
[2018-12-28] MEDS: LORATADINE 10 MG TAB PO SCH (08:51)
[2018-12-28] MEDS: FERROUS SULFATE 325 MG TAB PO SCH (08:51)
[2018-12-28] MEDS: MULTIVITAMINS, THERA 1 EACH TAB PO SCH (08:51)
[2018-12-28] MEDS: FAMOTIDINE 20 MG TAB PO SCH (08:51)
[2018-12-28] MEDS: RIVAROXABAN 10 MG TAB PO SCH (08:51)
[2018-12-28] MEDS ORDERED: POLYETHYLENE GLYCOL 3350 17 GM POWD.PACK PO SCH (09:00)
--- NOTE | 2018-12-28 10:11 | P.PN ---
Subjective Progress Note Date: 12/28/18 Patient seen and examined at bedside, present. Reporting that she's been up and ambulatory down the halls and back, had mild episode of nausea earlier today but otherwise doing fine, the patient is ready to go home today, she denies any chest pain or shortness of breath. No acute events overnight Objective - Vital Signs Vital signs: Vital Signs Temp 98.8 F 12/28/18 07:00 Pulse 61 12/28/18 07:00 Resp 16 12/28/18 07:00 BP 112/68 12/28/18 07:00 Pulse Ox 96 12/28/18 07:00 Intake & Output 12/27/18 12/28/18 12/28/18 18:59 06:59 18:59 Intake Total 400 480 200 Balance 400 480 200 Intake: Oral 400 480 200 Other: Voiding Method Toilet # Voids 1 1 - Exam General: Well-appearing, reporting her pain is better controlled appears at stated age Derm: warm, dry Head: atraumatic, normocephalic, symmetric Eyes: EOMI, no lid lag, anicteric sclera Mouth: no lip lesion, mucus membranes moist Cardiovascular: S1S2 reg, no murmur, positive posterior tibial pulse bilateral, Lungs: CTA bilateral, no rhonchi, no rales , no accessory muscle use Abdominal: soft, nontender to palpation, no guarding, no appreciable organomegaly Ext: no gross muscle atrophy, 1+ edema, no contractures, minimal soft tissue swelling around the incision which is clean dry and intact Psych: Alert, oriented, in good spirits today - Labs CBC & Chem 7: 12/28/18 06:52 12/26/18 07:14 Labs: Abnormal Lab Results - Last 24 Hours (Table) 12/28/18 Range/Units 06:52 RBC 2.73 L (3.80-5.40) m/uL Hgb 9.5 L (11.4-16.0) gm/dL Hct 27.8 L (34.0-46.0) % MCV 102.1 H (80.0-100.0) fL Assessment and Plan Assessment: Patient is a 48-year-old female here for an elective right total hip arthroplasty. On Xarelto for DVT prophylaxis. PT and OT consulted. Postop pain management per orthopedic surgery. Post-op pain -Deferred to primary regarding analgesic therapy -Patient noting improved and better pain control - encourage mobilization Acute blood loss anemia -expected outcome of surgery - Ferrous sulfate twice daily X 30 days - bowel regiment - repeat CBC in AM constipation * continue bowel cocktail w/ senna, MOM, start MiraLAx Seasonal ALLERGIES -Claritin HX of Migraine headaches - headache secondary to the dilaudid will try Tylenol. Metabolic encephalopathy, resolved -Disposition patient stable for discharge today we'll continue Dulcolax and MiraLAX
--- NOTE | 2018-12-28 13:16 | P.PN ---
Subjective Progress Note Date: 12/28/18 Principal diagnosis: Status post right total hip arthroplasty Patient evaluated today at bedside, she has multiple family members present. Pain is much better today. Patient currently denies any chest pain or shortness of breath. Objective - Vital Signs Vital signs: Vital Signs Temp 98.8 F 12/28/18 07:00 Pulse 61 12/28/18 07:00 Resp 16 12/28/18 07:00 BP 112/68 12/28/18 07:00 Pulse Ox 96 12/28/18 07:00 Intake & Output 12/27/18 12/28/18 12/28/18 18:59 06:59 18:59 Intake Total 400 480 200 Balance 400 480 200 Intake: Oral 400 480 200 Other: Voiding Method Toilet # Voids 1 1 - Exam Right lower extremity: Incision is clean, dry, and intact. The exofin fusion tape is in good condition. There is minimal soft tissue swelling and ecchymosis surrounding the medial and lateral aspects of the incision. Calf is soft, no tenderness with palpation. Plantar flexion, dorsiflexion, EHL, FHL are intact. Sensory exam to light touch throughout the extremity is intact, dorsal pedis pulses 2+. - Labs CBC & Chem 7: 12/28/18 06:52 12/26/18 07:14 Labs: Abnormal Lab Results - Last 24 Hours (Table) 12/28/18 Range/Units 06:52 RBC 2.73 L (3.80-5.40) m/uL Hgb 9.5 L (11.4-16.0) gm/dL Hct 27.8 L (34.0-46.0) % MCV 102.1 H (80.0-100.0) fL Assessment and Plan Plan: Assessment: Postoperative day #3 status post direct anterior right total hip arthroplasty Acute blood loss anemia, expected surgical outcome Plan: Pain control, Price and tramadol at dc GI and DVT prophylaxis, Eliquis 2.5mg bid Wound care instructions discussed Continue work with physical therapy We'll begin oral iron medications time Medical recommendations Plan for dc home today Time with Patient: Less than 30
--- NOTE | 2018-12-28 13:20 | P.DS ---
Providers Date of admission: 12/25/2018 Expected date of discharge: 12/28/18 Attending physician: Vasquez Sullivan Consults: 12/25/18 10:31 Consult Physician Routine Consulting Provider: Mark Carlin Consult Reason/Comments: Medical Management Do you want consulting provider notified?: Yes Primary care physician: Mark Carlin Hospital Course: Date of admission: 12/25/2018 Date of discharge: 12/28/2018 Admission diagnosis: Status post direct anterior right total hip arthroplasty Discharge diagnosis: Same Attending physician: Dr. Sullivan Surgical procedures: Direct anterior right total hip arthroplasty Brief history: Patient is a 48-year-old female with a history of progressive primary right hip osteoarthritis. At this point patient has failed conservative treatment measures and has opted to proceed with a elective direct anterior right total hip arthroplasty. Hospital course: Details of patient's surgery can be found in operative report. Patient tolerated the procedure well and was subsequently transported to orthopedic floor. Patient's orthopeidc and medical care was provided daily. Patient had daily laboratory tests performed for evaluation of overall blood counts. Patient had daily physical therapy to include strengthening range of motion as well as education with walker ambulation. Patient was treated with Xarelto for their postoperative DVT prophylaxis during their inpatient stay. Patient was noted to have a relatively uneventful postoperative course. Patient reported satisfactory pain control with oral pain medications by postoperative d ay 0. Patient showed satisfactory progress with physical therapy. Patient moved steadily through the program and had no difficulty meeting the goals by postoperative day 3. Given patient's otherwise satisfactory course and having met physical therapy goals, plan is to discharge patient home on postoperative day 3. Discharge condition/disposition: Patient will be discharged home in stable condi tion. Discharge medications: Instructions are given on resumption of patient's normal daily medications per primary care recommendation, in addition patient will be prescribed [place] 7.5 mg/325 mg, tramadol 50 mg, Vistaril 25 mg, Eliquis 2.5mg, Colace 100mg, Ferrous Sulfate 325mg. Discharge instructions: 1. Wound care and infection precautions, keep incision dry and covered while showering, no lotions, creams, moisturizers. No soaking, tubs, pools, hottubs. Do not scrub over the incision. 2. Weight-bear as tolerated with walker / cane until follow-up. 3. Ice and elevate when necessary. Do not exceed 20 minutes per hour with ice pack. 4. Utilize compression sleeve until seen at first follow up appointment. 5. Visiting nursing care. 6. Home physical therapy. 7. Pain meds and anticoagulants per prescription. 8. Pain medication has potential to cause constipation. Increase oral fluid and fiber intake. Contact primary care provider if you have not had a bowel movement within 48 hours after discharge 9. No anti-inflammatory medication until discussed at first post operative visit, this including Motrin, Aleve, Mobic, Diclofenac. 10. Follow up in office at 2 weeks postop with Aram Albert PA-C 11. Follow up with your primary care doctor 7-10 days after discharge. 12. Contact [facility] with any questions, . Procedures: Direct anterior right total hip arthroplasty Patient Condition at Discharge: Good Plan - Discharge Summary Discharge Rx Participant: Yes New Discharge Prescriptions: New Docusate [Colace] 100 mg PO DAILY #30 capsule Apixaban [Eliquis] 2.5 mg PO BID #60 tab Ferrous Sulfate [Feosol] 325 mg PO BID #60 tab HYDROcodone/APAP 7.5-325MG [[place] 7.5] 1 - 2 each PO Q6HR PRN #56 tab PRN Reason: Pain traMADol HCl [Ultram] 50 mg PO Q6H PRN #28 tab PRN Reason: Pain hydrOXYzine PAMOATE [Vistaril] 25 mg PO Q6HR PRN #40 capsule PRN Reason: Pain No Action Fexofenadine HCl [Aleisha Allergy] 180 mg PO DAILY Multivitamins, Thera [Multivitamin (formulary)] 1 tab PO DAILY Fish Oil(Dose Unknown) 1 tab PO DAILY Sertraline [Zoloft] 50 mg PO DAILY Vitamin D(Dose Unknown) 1 tab PO DAILY Iron(Dose Unknown) 1 tab PO DAILY Discharge Medication List Fexofenadine HCl [Aleisha Allergy] 180 mg PO DAILY 01/26/18 [History] Fish Oil(Dose Unknown) 1 tab PO DAILY 12/19/18 [History] Iron(Dose Unknown) 1 tab PO DAILY 12/19/18 [History] Multivitamins, Thera [Multivitamin (formulary)] 1 tab PO DAILY 12/19/18 [History] Sertraline [Zoloft] 50 mg PO DAILY 12/19/18 [History] Vitamin D(Dose Unknown) 1 tab PO DAILY 12/19/18 [History] Apixaban [Eliquis] 2.5 mg PO BID #60 tab 12/28/18 [Rx] Docusate [Colace] 100 mg PO DAILY #30 capsule 12/28/18 [Rx] Ferrous Sulfate [Feosol] 325 mg PO BID #60 tab 12/28/18 [Rx] HYDROcodone/APAP 7.5-325MG [[place] 7.5] 1 - 2 each PO Q6HR PRN #56 tab 12/28/18 [Rx] hydrOXYzine PAMOATE [Vistaril] 25 mg PO Q6HR PRN #40 capsule 12/28/18 [Rx] traMADol HCl [Ultram] 50 mg PO Q6H PRN #28 tab 12/28/18 [Rx] Follow up Appointment(s)/Referral(s): [facility] [NON-STAFF] - As Needed (walker) [facility], [NON-STAFF] - As Needed Felice Albert PAC [PHYSICIAN COMMISSIONED FIRE OFFICER] - 01/09/19 2:00 pm Mark Carlin MD [Primary Care Provider] - 1 Week Activity/Diet/Wound Care/Special Instructions: Orthopedic Discharge Instructions: 1. Wound care and infection precautions, keep incision dry and covered while showering, no lotions, creams, moisturizers. No soaking, pools, hot tubs. Do not scrub over incision. 2. Weight-bear as tolerated with walker / cane until follow-up. 3. Ice and elevate when necessary. Do not exceed 20 minutes per hour with ice pack. 4. Utilize compression sleeve until seen at first follow up appointment. 5. Pain meds and anticoagulants per prescription. 6. Pain medication has potential to cause constipation. Increase oral fluid and fiber intake. Contact primary care provider if you have not had a bowel movement within 48 hours after discharge. 7. No anti-inflammatory medication until discussed at first post operative visit, this including Motrin, Aleve, Mobic, Diclofenac. 8. Follow up in office at 2 weeks postop with Aram Albert PA-C 9. Follow up with your primary care doctor 7-10 days after discharge. 10. Contact [facility] with any questions, .
== END 2018-12-28 14:45 | disposition home health service (06) | DRG 939 ==
LOC: OR 07:01 → EDSTATUS 08:00 → 4SSUR 12:50 → OR 22:49 → OBSVTOIN 12-27 08:54
PROVIDERS: ADMIT Orthopaedic Surgery; ATTEND Orthopaedic Surgery
PROC: 0SR904A Replacement of Right Hip Joint with Ceramic on Polyethylene Synthetic Substitute, Uncemented, Open Approach (ICD-10-PCS; principal; 2018-12-25 08:00)
DX: G89.18 Other acute postprocedural pain (principal); G93.41 Metabolic encephalopathy; D62 Acute posthemorrhagic anemia; M16.11 Unilateral primary osteoarthritis, right hip; J30.2 Other seasonal allergic rhinitis; K59.00 Constipation, unspecified; G43.909 Migraine, unspecified, not intractable, without status migrainosus; Z79.899 Other long term (current) drug therapy; Z90.710 Acquired absence of both cervix and uterus; Z80.3 Family history of malignant neoplasm of breast; Z80.0 Family history of malignant neoplasm of digestive organs
CPT/HCPCS: 73501; 80048; 85025; 86850; 86900; 86901; 88300; 94760; 94762